=== PATIENT | male | born 1980 | race Caucasian/White ===

== ENCOUNTER 2016-06-23 15:27 | Inpatient (IN) | payer OTHER ==
[2016-06-23 15:48] VITALS: BMI 25.1
--- NOTE | 2016-06-23 16:38 | HP ---
COWS - Scale Resting Pulse: 1= ID [id number] Sweatin=Flushed/Facial Moisture Restless Observation: 3= Extraneous Movement Pupil Size: 0= Normal to Room Light Bone or Joint Aches: 2= Severe Diffuse Aches Runny Nose/ Eye Tearin= Runny Nose/Eyes GI Upset > 30mins: 2= Nausea/Diarrhea Tremor Observation: 2= Slight Tremor Visible Yawning Observation: 1= 1-2x During Session Anxiety or Irritability: 2=Irritable/Anxious Goose Flesh Skin: 0=Smooth Skin COWS Score: 17 Admission ROS S - HPI Chief Complaint: I need detox from heroine Allergies/Adverse Reactions: Allergies Allergy/AdvReac Type Severity Reaction Status Date / Time No Known Allergies Allergy Verified 09/22/15 20:24 History of Present Illness: 35 y/o male with opiate and benzo dependence presents for detox. His last treatment was in 2015 at this facility. - Ebola screening Have you traveled outside of the country in the last 21 days: No Have you had contact with anyone from an Ebola affected area: No Have you been sick,other than usual withdrawal symptoms: No Do you have a fever: No - Review of Systems Constitutional: Chills, Loss of Appetite, Changes in sleep EENT: reports: Nose Congestion Respiratory: reports: No Symptoms reported Cardiac: reports: No Symptoms Reported GI: reports: Nausea, Poor Appetite, Abdominal cramping : reports: No Symptoms Reported Musculoskeletal: reports: Back Pain, Joint Pain, Muscle Weakness Integumentary: reports: No Symptoms Reported Neuro: reports: Headache, Tremors Endocrine: reports: No Symptoms Reported Hematology: reports: No Symptoms Reported Psychiatric: reports: Anxious Other Systems: Reviewed and Negative Patient History - Patient Medical History Hx Anemia: No Hx Asthma: No Hx Chronic Obstructive Pulmonary Disease (COPD): No Hx Cancer: No Hx Cardiac Disorders: No Hx Congestive Heart Failure: No Hx Hypertension: No Hx Hypercholesterolemia: No Hx Pacemaker: No HX Cerebrovascular Accident: No Hx Seizures: No Hx Dementia: No Hx Diabetes: No Hx Gastrointestinal Disorders: Yes (GERD) Hx Liver Disease: No Hx Genitourinary Disorders: No Hx Sexually Transmitted Disorders: No Hx Renal Disease (ESRD): No Hx Thyroid Disease: No Hx Human Immunodeficiency Virus (HIV): No Hx Hepatitis C: No Hx Depression: No Hx Suicide Attempt: No Hx Bipolar Disorder: No Hx Schizophrenia: No - Patient Surgical History Past Surgical History: Yes Hx Neurologic Surgery: No Hx Cataract Extraction: No Hx Cardiac Surgery: No Hx Lung Surgery: No Hx Breast Surgery: No Hx Breast Biopsy: No Hx Abdominal Surgery: No Hx Appendectomy: No Hx Cholecystectomy: No Hx Genitourinary Surgery: No Hx Section: No Hx Orthopedic Surgery: No Other Surgical History: Tonsilectomy as a child Anesthesia Reaction: No - PPD History Previous Implant?: Yes Documented Results: Negative w/proof Implanted On Prior [facility] Admission?: Yes Date: 09/24/15 PPD to be Administered?: No - Smoking Cessation Smoking history: Current every day smoker Have you smoked in the past 12 months: Yes Aproximately how many cigarettes per day: 20 Cigars Per Day: 0 Hx Chewing Tobacco Use: No Initiated information on smoking cessation: Yes 'Breaking Loose' booklet given: 06/23/16 - Substance & Tx. History Hx Alcohol Use: No Hx Substance Use: Yes Substance Use Type: Heroin Hx Substance Use Treatment: Yes - Substances Abused Heroin Route: Injection Frequency: Daily Amount used: 3 bundles Age of first use: 32 Date of Last Use: 06/23/16 Alprazolam (Xanax) Route: Oral Frequency: 1-2 times per week Amount used: 2mg Age of first use: 32 Date of Last Use: 06/23/16 Family Disease History - Family Disease History Family Disease History: Heart Disease: Father, CA: Mother (BREAST), Respiratory : Father Admission Physical Exam BHS - Vital Signs Vital Signs: Vital Signs - 24 hr 06/23/16 15:43 Temperature 96.8 F L Pulse Rate 87 Respiratory 18 Rate Blood Pressure 122/75 - Physical General Appearance: Yes: No Apparent Distress HEENTM: Yes: EOMI, Normal Voice, KYLE Respiratory: Yes: Chest Non-Tender, Normal Breath Sounds, No Respiratory Distress, No Accessory Muscle Use Neck: Yes: No masses,lesions,Nodules, Supple Breast: Yes: Breast Exam Deferred Cardiology: Yes: Regular Rhythm, Regular Rate, S1, S2, Murmur Abdominal: Yes: Normal Bowel Sounds, Soft Genitourinary: Yes: Within Normal Limits Back: Yes: Normal Inspection Musculoskeletal: Yes: Back pain, Muscle Pain Extremities: Yes: Normal Range of Motion, Non-Tender, Tremors 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 intact, Fully Oriented, Alert Integumentary: Yes: Track Stinson (both arms) Lymphatic: Yes: Within Normal Limits - Diagnostic (1) Opioid dependence with withdrawal Current Visit: Yes Status: Acute (2) GERD (gastroesophageal reflux disease) Current Visit: Yes Status: Chronic Qualifiers: Esophagitis presence: without esophagitis Qualified Code(s): K21.9 - Gastro-esophageal reflux disease without esophagitis (3) Nicotine dependence Current Visit: Yes Status: Chronic Qualifiers: Nicotine product type: cigarettes Substance use status: uncomplicated Qualified Code(s): F17.210 - Nicotine dependence, cigarettes, uncomplicated Cleared for Admission [facility] - Detox or Rehab [facility] Level of Care: Medically Managed Detox Regimen/Protocol: Methadone [facility] Breath Alcohol Content Breath Alcohol Content: 0 Urine Drug Screen - Results Drug Screen Negative: No Urine Drug Screen Results: OPI-Opiates, BZO-Benzodiazepines, OXY-Oxycodone
[2016-06-23] MEDS ORDERED: P-EPHED 60MG/TRIPROLIDI 2.5MG TABLET PO PRN (16:43)
[2016-06-23] MEDS ORDERED: LOPERAMIDE HCL 2 MG CAPSULE PO PRN (16:43)
[2016-06-23] MEDS ORDERED: guaiFENesin/D-METHORPHAN HB 10 ML UNIT-DOSE CUPS PO PRN (16:43)
[2016-06-23] MEDS ORDERED: METHADONE HCL 10 MG TABLET (FOR DETOX USE ONLY) PO ONE ×2 (16:43→23:00)
[2016-06-23] MEDS ORDERED: MAG HYDROX/AL HYDROX/SIMETH 30 ML UNIT-DOSE CUP PO PRN (16:43)
[2016-06-23] MEDS ORDERED: MAGNESIUM CITRATE 300 ML BOTTLE PO PRN (16:43)
[2016-06-23] MEDS ORDERED: MENTHOL/PHENOL 1 EACH UD MM PRN (16:43)
[2016-06-23] MEDS ORDERED: ACETAMINOPHEN 325 MG TABLET (FP) PO PRN (16:43)
[2016-06-23] MEDS ORDERED: NICOTINE POLACRILEX 2 MG GUM BC PRN (16:43)
[2016-06-23] MEDS ORDERED: MAGNESIUM HYDROX 2400MG/30ML ORAL SUSPENSION 30 ML CUP PO PRN (16:43)
[2016-06-23] MEDS ORDERED: METHADONE HCL 10 MG TABLET (FOR DETOX USE ONLY) ONE (19:58)
[2016-06-23] MEDS: diazePAM 5 MG TABLET PO PRN (20:00)
[2016-06-23] MEDS: NICOTINE 21 MG/24 HOURS TOPICAL PATCH TD SCH (20:02)
[2016-06-23] MEDS: PANTOPRAZOLE 40 MG TABLET (FP) PO SCH (20:08)
[2016-06-23] MEDS: THIAMINE HCL 100 MG TABLET (FP) PO SCH (22:55)
[2016-06-24] MEDS ORDERED: PANTOPRAZOLE 40 MG TABLET (FP) PO SCH ×2 (08:00→10:00)
[2016-06-24] MEDS ORDERED: METHADONE HCL 10 MG TABLET (FOR DETOX USE ONLY) PO ONE (10:00)
[2016-06-24] MEDS: diazePAM 5 MG TABLET PO PRN ×3 (10:38→22:49)
[2016-06-24] MEDS: PRENATAL VITAMINS W/ FOLIC ACID TABLET (FP) PO SCH (10:38)
[2016-06-24] MEDS: NICOTINE 21 MG/24 HOURS TOPICAL PATCH TD SCH (10:38)
[2016-06-24] MEDS: PANTOPRAZOLE 40 MG TABLET (FP) PO SCH (10:38)
[2016-06-24] MEDS: IBUPROFEN 400 MG TABLET (FP) PO PRN ×2 (10:41→17:37)
[2016-06-24 11:05] LABS: MCHC 34.9 g/dl (32.0-35.9); PLATELET COUNT 147 K/MM3 (134-434); RDW 12.5 % (11.9-15.9); WHITE BLOOD COUNT 5.8 K/mm3 (4.0-10.0)
[2016-06-24 11:13] LABS: ALBUMIN 3.5 g/dl (3.4-5.0); ANION GAP 8 (8-16); CALCIUM 8.4 mg/dL (8.5-10.1); CO2 28 mmol/L (21-32); GLUCOSE,RANDOM 80 mg/dL (74-106)
[2016-06-24 11:17] LABS: ALK PHOS 68 U/L (45-117); BILIRUBIN,TOTAL 0.7 mg/dL (0.2-1.0); COCKROFT - GAULT 146.32; CREATININE 0.9 mg/dL (0.7-1.3); SGOT/AST 14 U/L (15-37); SGPT/ALT 37 U/L (12-78); TOT PROT 6.1 g/dl (6.4-8.2)
[2016-06-24 11:33] LABS: HIV 1 & 2 AB NEGATIVE; HIV 1 AGp24 NEGATIVE
--- NOTE | 2016-06-24 12:43 | EKG ---
Test Reason : Blood Pressure : / mmHG Vent. Rate : 070 BPM Atrial Rate : 070 BPM P-R Int : 168 ms QRS Dur : 104 ms QT Int : 396 ms P-R-T Axes : 064 -13 000 degrees QTc Int : 427 ms NORMAL SINUS RHYTHM MODERATE VOLTAGE CRITERIA FOR LVH, MAY BE NORMAL VARIANT NO PREVIOUS ECGS AVAILABLE Confirmed by BASILIO CAIN MD ([id number]) on 06/24/2016 12:43:47 PM Referred By: Confirmed By:BASILIO CAIN MD
[2016-06-24 12:54] LABS: URINE APPEARANCE CLEAR; URINE BILIRUBIN NEGATIVE (NEGATIVE); URINE BLOOD NEGATIVE (NEGATIVE); URINE COLOR YELLOW; URINE GLUCOSE (UA) NEGATIVE (NEGATIVE); URINE KETONE NEGATIVE (NEGATIVE); URINE LEUK ESTERASE NEGATIVE (NEGATIVE); URINE NITRITE NEGATIVE (NEGATIVE); URINE PROTEIN NEGATIVE (NEGATIVE); URINE UROBILINOGEN NEGATIVE E.U./dl (0.2-1.0)
--- NOTE | 2016-06-24 16:32 | PN ---
BHS COWS - Scale Resting Pulse: 0= [place] 80 or Below Sweatin= Chills/Flushing Restless Observation: 3= Extraneous Movement Pupil Size: 0= Normal to Room Light Bone or Joint Aches: 2= Severe Diffuse Aches Runny Nose/ Eye Tearin= Runny Nose/Eyes GI Upset > 30mins: 2= Nausea/Diarrhea Tremor Observation of Outstretched Hands: 2= Slight Tremor Visible Yawning Observation: 0= None Anxiety or Irritability: 2=Irritable/Anxious Goose Flesh Skin: 0=Smooth Skin COWS Score: 14 BHS Progress Note (SOAP) Subjective: Chills, sweating, anxious, interrupted sleep Objective: 06/24/16 16:31 Last Vital Signs Temp Pulse Resp BP Pulse Ox 96.2 F L 66 18 127/81 06/24/16 14:02 06/24/16 14:02 06/24/16 14:02 06/24/16 14:02 Laboratory Tests 06/24/16 06/24/16 06/24/16 07:00 07:00 07:00 WBC 5.8 RBC 4.80 Hgb 14.4 Hct 41.3 MCV 86.0 MCHC 34.9 RDW 12.5 Plt Count 147 MPV 7.0 L Sodium 141 Potassium 4.2 Chloride 105 Carbon Dioxide 28 Anion Gap 8 BUN 25 H D Creatinine 0.9 Creat Clearance w eGFR > 60 Random Glucose 80 Calcium 8.4 L Total Bilirubin 0.7 AST 14 L D ALT 37 D Alkaline Phosphatase 68 Total Protein 6.1 L Albumin 3.5 Urine Color Urine Appearance Urine pH Ur Specific [place] Urine Protein Urine Glucose (UA) Urine Ketones Urine Blood Urine Nitrite Urine Bilirubin Urine Urobilinogen Ur Leukocyte Esterase RPR Titer Nonreactive HIV 1&2 Antibody Screen HIV P24 Antigen 06/24/16 06/24/16 07:00 09:36 WBC RBC Hgb Hct MCV MCHC RDW Plt Count MPV Sodium Potassium Chloride Carbon Dioxide Anion Gap BUN Creatinine Creat Clearance w eGFR Random Glucose Calcium Total Bilirubin AST ALT Alkaline Phosphatase Total Protein Albumin Urine Color Yellow Urine Appearance Clear Urine pH 6.0 Ur Specific [place] 1.023 Urine Protein Negative Urine Glucose (UA) Negative Urine Ketones Negative Urine Blood Negative Urine Nitrite Negative Urine Bilirubin Negative Urine Urobilinogen Negative Ur Leukocyte Esterase Negative RPR Titer HIV 1&2 Antibody Screen Negative HIV P24 Antigen Negative Labs noted Assessment: 06/24/16 16:31 Withdrawal symptoms Plan: Continue detox
[2016-06-24] MEDS: THIAMINE HCL 100 MG TABLET (FP) PO SCH (22:48)
[2016-06-24] MEDS: diphenhydrAMINE HCL 50 MG CAPSULE PO PRN (22:48)
[2016-06-25] MEDS: diazePAM 5 MG TABLET PO PRN ×3 (05:14→22:34)
[2016-06-25] MEDS ORDERED: METHADONE HCL 5 MG TABLET (FOR DETOX USE ONLY) PO ONE (10:00)
[2016-06-25] MEDS: PRENATAL VITAMINS W/ FOLIC ACID TABLET (FP) PO SCH (10:29)
[2016-06-25] MEDS: NICOTINE 21 MG/24 HOURS TOPICAL PATCH TD SCH (10:29)
[2016-06-25] MEDS: PANTOPRAZOLE 40 MG TABLET (FP) PO SCH (10:30)
--- NOTE | 2016-06-25 15:45 | PN ---
BHS COWS - Scale Resting Pulse: 1= [place] 81-100 Sweatin=Flushed/Facial Moisture Restless Observation: 1= Difficult to Sit Still Pupil Size: 0= Normal to Room Light Bone or Joint Aches: 2= Severe Diffuse Aches Runny Nose/ Eye Tearin= Runny Nose/Eyes GI Upset > 30mins: 2= Nausea/Diarrhea Tremor Observation of Outstretched Hands: 2= Slight Tremor Visible Yawning Observation: 1= 1-2x During Session Anxiety or Irritability: 2=Irritable/Anxious Goose Flesh Skin: 0=Smooth Skin COWS Score: 15 BHS Progress Note (SOAP) Subjective: Sweating,interrupted sleep,anxiety,tremors,muscle aches,restless Objective: 06/25/16 15:44 Last Vital Signs Temp Pulse Resp BP Pulse Ox 96.4 F L 81 18 149/79 06/25/16 14:15 06/25/16 14:15 06/25/16 14:15 06/25/16 14:15 Laboratory Tests 06/24/16 06/24/16 06/24/16 07:00 07:00 07:00 WBC 5.8 RBC 4.80 Hgb 14.4 Hct 41.3 MCV 86.0 MCHC 34.9 RDW 12.5 Plt Count 147 MPV 7.0 L Sodium 141 Potassium 4.2 Chloride 105 Carbon Dioxide 28 Anion Gap 8 BUN 25 H D Creatinine 0.9 Creat Clearance w eGFR > 60 Random Glucose 80 Calcium 8.4 L Total Bilirubin 0.7 AST 14 L D ALT 37 D Alkaline Phosphatase 68 Total Protein 6.1 L Albumin 3.5 Urine Color Urine Appearance Urine pH Ur Specific [place] Urine Protein Urine Glucose (UA) Urine Ketones Urine Blood Urine Nitrite Urine Bilirubin Urine Urobilinogen Ur Leukocyte Esterase RPR Titer Nonreactive HIV 1&2 Antibody Screen HIV P24 Antigen 06/24/16 06/24/16 07:00 09:36 WBC RBC Hgb Hct MCV MCHC RDW Plt Count MPV Sodium Potassium Chloride Carbon Dioxide Anion Gap BUN Creatinine Creat Clearance w eGFR Random Glucose Calcium Total Bilirubin AST ALT Alkaline Phosphatase Total Protein Albumin Urine Color Yellow Urine Appearance Clear Urine pH 6.0 Ur Specific [place] 1.023 Urine Protein Negative Urine Glucose (UA) Negative Urine Ketones Negative Urine Blood Negative Urine Nitrite Negative Urine Bilirubin Negative Urine Urobilinogen Negative Ur Leukocyte Esterase Negative RPR Titer HIV 1&2 Antibody Screen Negative HIV P24 Antigen Negative labs noted Assessment: 06/25/16 15:44 Withdrawal sx. Plan: Continue detox
[2016-06-25] MEDS: THIAMINE HCL 100 MG TABLET (FP) PO SCH (22:33)
[2016-06-25] MEDS: diphenhydrAMINE HCL 50 MG CAPSULE PO PRN (22:35)
[2016-06-26] MEDS: diazePAM 5 MG TABLET PO PRN ×2 (05:23→10:13)
[2016-06-26] MEDS ORDERED: METHADONE HCL 5 MG TABLET (FOR DETOX USE ONLY) PO ONE (10:00)
[2016-06-26] MEDS: NICOTINE 21 MG/24 HOURS TOPICAL PATCH TD SCH (10:13)
[2016-06-26] MEDS: PRENATAL VITAMINS W/ FOLIC ACID TABLET (FP) PO SCH (10:13)
[2016-06-26] MEDS: PANTOPRAZOLE 40 MG TABLET (FP) PO SCH (10:13)
--- NOTE | 2016-06-26 10:51 | PN ---
BHS Progress Note (SOAP) Subjective: DECREASED ANXIETY,SWEATS. Objective: 06/26/16 10:50 Vital Signs Temperature 96.2 F L 06/26/16 09:35 Pulse Rate 79 06/26/16 09:35 Respiratory Rate 20 06/26/16 09:35 Blood Pressure 142/81 06/26/16 09:35 O2 Sat by Pulse Oximetry (%) Laboratory Last Values WBC 5.8 K/mm3 (4.0-10.0) 06/24/16 07:00 RBC 4.80 M/mm3 (4.00-5.60) 06/24/16 07:00 Hgb 14.4 GM/dL (11.7-16.9) 06/24/16 07:00 Hct 41.3 % (35.4-49) 06/24/16 07:00 MCV 86.0 fl (80-96) 06/24/16 07:00 MCHC 34.9 g/dl (32.0-35.9) 06/24/16 07:00 RDW 12.5 % (11.9-15.9) 06/24/16 07:00 Plt Count 147 K/MM3 (134-434) 06/24/16 07:00 MPV 7.0 fl (7.5-11.1) L 06/24/16 07:00 Sodium 141 mmol/L (136-145) 06/24/16 07:00 Potassium 4.2 mmol/L (3.5-5.1) 06/24/16 07:00 Chloride 105 mmol/L (98-107) 06/24/16 07:00 Carbon Dioxide 28 mmol/L (21-32) 06/24/16 07:00 Anion Gap 8 (8-16) 06/24/16 07:00 BUN 25 mg/dL (7-18) H D 06/24/16 07:00 Creatinine 0.9 mg/dL (0.7-1.3) 06/24/16 07:00 Creat Clearance w eGFR > 60 (>60) 06/24/16 07:00 Random Glucose 80 mg/dL (74-106) 06/24/16 07:00 Calcium 8.4 mg/dL (8.5-10.1) L 06/24/16 07:00 Total Bilirubin 0.7 mg/dL (0.2-1.0) 06/24/16 07:00 AST 14 U/L (15-37) L D 06/24/16 07:00 ALT 37 U/L (12-78) D 06/24/16 07:00 Alkaline Phosphatase 68 U/L (45-117) 06/24/16 07:00 Total Protein 6.1 g/dl (6.4-8.2) L 06/24/16 07:00 Albumin 3.5 g/dl (3.4-5.0) 06/24/16 07:00 Urine Color Yellow 06/24/16 09:36 Urine Appearance Clear 06/24/16 09:36 Urine pH 6.0 (5.0-8.0) 06/24/16 09:36 Ur Specific [place] 1.023 (1.001-1.035) 06/24/16 09:36 Urine Protein Negative (NEGATIVE) 06/24/16 09:36 Urine Glucose (UA) Negative (NEGATIVE) 06/24/16 09:36 Urine Ketones Negative (NEGATIVE) 06/24/16 09:36 Urine Blood Negative (NEGATIVE) 06/24/16 09:36 Urine Nitrite Negative (NEGATIVE) 06/24/16 09:36 Urine Bilirubin Negative (NEGATIVE) 06/24/16 09:36 Urine Urobilinogen Negative E.U./dl (0.2-1.0) 06/24/16 09:36 Ur Leukocyte Esterase Negative (NEGATIVE) 06/24/16 09:36 RPR Titer Nonreactive (NONREACTIVE) 06/24/16 07:00 HIV 1&2 Antibody Screen Negative 06/24/16 07:00 HIV P24 Antigen Negative 06/24/16 07:00 Assessment: 06/26/16 10:51 WITHDRAWAL SX Plan: CONTINUE DETOX
[2016-06-26] MEDS: hydrOXYzine PAMOATE 50 MG CAPSULE (FP) PO PRN (17:48)
[2016-06-26] MEDS: IBUPROFEN 400 MG TABLET (FP) PO PRN (17:48)
[2016-06-26] MEDS: diphenhydrAMINE HCL 50 MG CAPSULE PO PRN (22:31)
[2016-06-26] MEDS: THIAMINE HCL 100 MG TABLET (FP) PO SCH (22:31)
[2016-06-27] MEDS ORDERED: METHADONE HCL 10 MG TABLET (FOR DETOX USE ONLY) PO ONE (10:00)
[2016-06-27] MEDS: PRENATAL VITAMINS W/ FOLIC ACID TABLET (FP) PO SCH (10:18)
[2016-06-27] MEDS: NICOTINE 21 MG/24 HOURS TOPICAL PATCH TD SCH (10:18)
[2016-06-27] MEDS: PANTOPRAZOLE 40 MG TABLET (FP) PO SCH (10:18)
[2016-06-27] MEDS: IBUPROFEN 400 MG TABLET (FP) PO PRN ×2 (10:19→22:34)
[2016-06-27] MEDS: hydrOXYzine PAMOATE 50 MG CAPSULE (FP) PO PRN ×2 (10:20→22:34)
--- NOTE | 2016-06-27 11:34 | PN ---
BHS Progress Note (SOAP) Subjective: ANXIETY,FATIGUE. Objective: 06/27/16 11:33 Vital Signs Temperature 98.1 F 06/27/16 10:06 Pulse Rate 76 06/27/16 10:06 Respiratory Rate 20 06/27/16 10:06 Blood Pressure 119/73 06/27/16 10:06 O2 Sat by Pulse Oximetry (%) Laboratory Last Values WBC 5.8 K/mm3 (4.0-10.0) 06/24/16 07:00 RBC 4.80 M/mm3 (4.00-5.60) 06/24/16 07:00 Hgb 14.4 GM/dL (11.7-16.9) 06/24/16 07:00 Hct 41.3 % (35.4-49) 06/24/16 07:00 MCV 86.0 fl (80-96) 06/24/16 07:00 MCHC 34.9 g/dl (32.0-35.9) 06/24/16 07:00 RDW 12.5 % (11.9-15.9) 06/24/16 07:00 Plt Count 147 K/MM3 (134-434) 06/24/16 07:00 MPV 7.0 fl (7.5-11.1) L 06/24/16 07:00 Sodium 141 mmol/L (136-145) 06/24/16 07:00 Potassium 4.2 mmol/L (3.5-5.1) 06/24/16 07:00 Chloride 105 mmol/L (98-107) 06/24/16 07:00 Carbon Dioxide 28 mmol/L (21-32) 06/24/16 07:00 Anion Gap 8 (8-16) 06/24/16 07:00 BUN 25 mg/dL (7-18) H D 06/24/16 07:00 Creatinine 0.9 mg/dL (0.7-1.3) 06/24/16 07:00 Creat Clearance w eGFR > 60 (>60) 06/24/16 07:00 Random Glucose 80 mg/dL (74-106) 06/24/16 07:00 Calcium 8.4 mg/dL (8.5-10.1) L 06/24/16 07:00 Total Bilirubin 0.7 mg/dL (0.2-1.0) 06/24/16 07:00 AST 14 U/L (15-37) L D 06/24/16 07:00 ALT 37 U/L (12-78) D 06/24/16 07:00 Alkaline Phosphatase 68 U/L (45-117) 06/24/16 07:00 Total Protein 6.1 g/dl (6.4-8.2) L 06/24/16 07:00 Albumin 3.5 g/dl (3.4-5.0) 06/24/16 07:00 Urine Color Yellow 06/24/16 09:36 Urine Appearance Clear 06/24/16 09:36 Urine pH 6.0 (5.0-8.0) 06/24/16 09:36 Ur Specific [place] 1.023 (1.001-1.035) 06/24/16 09:36 Urine Protein Negative (NEGATIVE) 06/24/16 09:36 Urine Glucose (UA) Negative (NEGATIVE) 06/24/16 09:36 Urine Ketones Negative (NEGATIVE) 06/24/16 09:36 Urine Blood Negative (NEGATIVE) 06/24/16 09:36 Urine Nitrite Negative (NEGATIVE) 06/24/16 09:36 Urine Bilirubin Negative (NEGATIVE) 06/24/16 09:36 Urine Urobilinogen Negative E.U./dl (0.2-1.0) 06/24/16 09:36 Ur Leukocyte Esterase Negative (NEGATIVE) 06/24/16 09:36 RPR Titer Nonreactive (NONREACTIVE) 06/24/16 07:00 HIV 1&2 Antibody Screen Negative 06/24/16 07:00 HIV P24 Antigen Negative 06/24/16 07:00 Assessment: 06/27/16 11:34 WITHDRAWAL SX SX Plan: CONTINUE DETOX
[2016-06-27] MEDS: THIAMINE HCL 100 MG TABLET (FP) PO SCH (22:32)
[2016-06-28] MEDS ORDERED: METHADONE HCL 5 MG TABLET (FOR DETOX USE ONLY) PO ONE (06:00)
[2016-06-28 06:49] VITALS: BP 116/77; PULSE 78; TEMP 96.8
--- NOTE | 2016-08-05 19:11 | DS ---
[facility] Detox Discharge Summary Admission Date: 06/23/16 Discharge Date: 06/28/16 - History Present History: Opioid Dependence Pertinent Past History: GERD - Physical Exam Results Vital Signs: Vital Signs Temperature 96.8 F L 06/28/16 06:49 Pulse Rate 78 06/28/16 06:49 Respiratory Rate 16 06/28/16 06:49 Blood Pressure 116/77 06/28/16 06:49 O2 Sat by Pulse Oximetry (%) Pertinent Admission Physical Exam Findings: Withdrawal sx. Laboratory Last Values WBC 5.8 K/mm3 (4.0-10.0) 06/24/16 07:00 RBC 4.80 M/mm3 (4.00-5.60) 06/24/16 07:00 Hgb 14.4 GM/dL (11.7-16.9) 06/24/16 07:00 Hct 41.3 % (35.4-49) 06/24/16 07:00 MCV 86.0 fl (80-96) 06/24/16 07:00 MCHC 34.9 g/dl (32.0-35.9) 06/24/16 07:00 RDW 12.5 % (11.9-15.9) 06/24/16 07:00 Plt Count 147 K/MM3 (134-434) 06/24/16 07:00 MPV 7.0 fl (7.5-11.1) L 06/24/16 07:00 Sodium 141 mmol/L (136-145) 06/24/16 07:00 Potassium 4.2 mmol/L (3.5-5.1) 06/24/16 07:00 Chloride 105 mmol/L (98-107) 06/24/16 07:00 Carbon Dioxide 28 mmol/L (21-32) 06/24/16 07:00 Anion Gap 8 (8-16) 06/24/16 07:00 BUN 25 mg/dL (7-18) H D 06/24/16 07:00 Creatinine 0.9 mg/dL (0.7-1.3) 06/24/16 07:00 Creat Clearance w eGFR > 60 (>60) 06/24/16 07:00 Random Glucose 80 mg/dL (74-106) 06/24/16 07:00 Calcium 8.4 mg/dL (8.5-10.1) L 06/24/16 07:00 Total Bilirubin 0.7 mg/dL (0.2-1.0) 06/24/16 07:00 AST 14 U/L (15-37) L D 06/24/16 07:00 ALT 37 U/L (12-78) D 06/24/16 07:00 Alkaline Phosphatase 68 U/L (45-117) 06/24/16 07:00 Total Protein 6.1 g/dl (6.4-8.2) L 06/24/16 07:00 Albumin 3.5 g/dl (3.4-5.0) 06/24/16 07:00 Urine Color Yellow 06/24/16 09:36 Urine Appearance Clear 06/24/16 09:36 Urine pH 6.0 (5.0-8.0) 06/24/16 09:36 Ur Specific [place] 1.023 (1.001-1.035) 06/24/16 09:36 Urine Protein Negative (NEGATIVE) 06/24/16 09:36 Urine Glucose (UA) Negative (NEGATIVE) 06/24/16 09:36 Urine Ketones Negative (NEGATIVE) 06/24/16 09:36 Urine Blood Negative (NEGATIVE) 06/24/16 09:36 Urine Nitrite Negative (NEGATIVE) 06/24/16 09:36 Urine Bilirubin Negative (NEGATIVE) 06/24/16 09:36 Urine Urobilinogen Negative E.U./dl (0.2-1.0) 06/24/16 09:36 Ur Leukocyte Esterase Negative (NEGATIVE) 06/24/16 09:36 RPR Titer Nonreactive (NONREACTIVE) 06/24/16 07:00 HIV 1&2 Antibody Screen Negative 06/24/16 07:00 HIV P24 Antigen Negative 06/24/16 07:00 labs noted - Treatment Hospital Course: Detox Protocol Followed, Detoxed Safely, Responded well, Discharged Condition Good, Rehab Referral Accepted Patient has Accepted a Rehab Referral to: 12 step meeting - Medication Discharge Medications: Ambulatory Orders Omeprazole [Prilosec] 1 cap PO DAILY 09/22/15 - Diagnosis (1) Opioid dependence with withdrawal Status: Acute (2) GERD (gastroesophageal reflux disease) Status: Chronic Qualifiers: Esophagitis presence: without esophagitis Qualified Code(s): K21.9 - Gastro-esophageal reflux disease without esophagitis (3) Nicotine dependence Status: Chronic Qualifiers: Nicotine product type: cigarettes Substance use status: uncomplicated Qualified Code(s): F17.210 - Nicotine dependence, cigarettes, uncomplicated - AMA Did Patient Leave Against Medical Advice: No
== END 2016-06-28 08:39 | disposition home or self-care (01) | DRG 773 ==
LOC: YASAS 15:27 → Y3N 17:23
PROVIDERS: ADMIT Internal Medicine; ATTEND Internal Medicine
PROC: HZ2ZZZZ Detoxification Services for Substance Abuse Treatment (ICD-10-PCS; principal; 2016-06-23)
DX: F11.23 Opioid dependence with withdrawal (principal); F17.210 Nicotine dependence, cigarettes, uncomplicated; K21.9 Gastro-esophageal reflux disease without esophagitis; R01.1 Cardiac murmur, unspecified
CPT/HCPCS: 36415; 80053; 81003; 85027; 86593; 87389; 93005; 93010

== ENCOUNTER 2016-10-10 10:04 | Inpatient (IN) | payer MEDICARE ==
[2016-10-10 10:55] VITALS: BMI 24.6
--- NOTE | 2016-10-10 13:06 | HP ---
COWS - Scale Resting Pulse: 1= [place] 81-100 Sweatin= Chills/Flushing Restless Observation: 3= Extraneous Movement Pupil Size: 0= Normal to Room Light Bone or Joint Aches: 4=Acute Joint/Muscle Pain Runny Nose/ Eye Tearin= Nasal Congestion GI Upset > 30mins: 2= Nausea/Diarrhea Tremor Observation: 1= Tremor [place], Not Seen Yawning Observation: 1= 1-2x During Session Anxiety or Irritability: 2=Irritable/Anxious Goose Flesh Skin: 0=Smooth Skin COWS Score: 16 Admission [facility] Chief Complaint: DETOX [place] FOR HEROIN DEPENDENCE Allergies/Adverse Reactions: Allergies Allergy/AdvReac Type Severity Reaction Status Date / Time No Known Allergies Allergy Verified 10/10/16 11:50 History of Present Illness: 36 Y/O MALE WITH A HX OF HEROIN DEPENDENCE SEEKING DETOX [place] Exam Limitations: No Limitations - Ebola screening Have you traveled outside of the country in the last 21 days: No Have you had contact with anyone from an Ebola affected area: No Have you been sick,other than usual withdrawal symptoms: No Do you have a fever: No - Review of Systems Constitutional: Chills, Loss of Appetite, Night Sweats, Changes in sleep, Unintentional Wgt. Loss EENT: reports: Blurred Vision, Tearing, Nose Congestion, Dental Problems ( MISSING TEETH/CAVITIES) Respiratory: reports: No Symptoms reported Cardiac: reports: Lightheadedness GI: reports: Constipated, Diarrhea, Nausea, Poor Fluid Intake, Vomiting : reports: No Symptoms Reported Musculoskeletal: reports: Back Pain, Joint Pain, Muscle Pain Integumentary: reports: Bruising (SCAB FROM SKIN POPPING LEFT UPPER ARM-- ABSCESS REMOVED 1 WEEK AGO.) Neuro: reports: Headache, Numbness, Tingling, Tremors, Dizziness Endocrine: reports: No Symptoms Reported Hematology: reports: No Symptoms Reported Psychiatric: reports: Orientated x3, Agitated, Anxious Other Systems: Reviewed and Negative Patient History - Patient Medical History Hx Anemia: No Hx Asthma: No Hx Chronic Obstructive Pulmonary Disease (COPD): No Hx Cancer: No Hx Cardiac Disorders: No Hx Congestive Heart Failure: No Hx Hypertension: No Hx Hypercholesterolemia: No Hx Pacemaker: No HX Cerebrovascular Accident: No Hx Seizures: No Hx Dementia: No Hx Diabetes: No Hx Gastrointestinal Disorders: Yes (GERD-OMEPRAZOLE 40 MG ) Hx Liver Disease: No Hx Genitourinary Disorders: No Hx Sexually Transmitted Disorders: No Hx Renal Disease (ESRD): No Hx Thyroid Disease: No Hx Human Immunodeficiency Virus (HIV): No (NEGATIVE HX) Hx Hepatitis C: No Hx Depression: No Hx Suicide Attempt: No (DENIES) Hx Bipolar Disorder: No Hx Schizophrenia: No - Patient Surgical History Past Surgical History: Yes Hx Neurologic Surgery: No Hx Cataract Extraction: No Hx Cardiac Surgery: No Hx Lung Surgery: No Hx Breast Surgery: No Hx Breast Biopsy: No Hx Abdominal Surgery: No Hx Appendectomy: No Hx Cholecystectomy: No Hx Genitourinary Surgery: No Hx Section: No Hx Orthopedic Surgery: Yes (Abcess lt upper arm(drained 1 week ago) Other Surgical History: Tonsilectomy as a child Anesthesia Reaction: No - PPD History Previous Implant?: Yes Documented Results: Negative w/proof Implanted On Prior [facility] Admission?: Yes Date: 09/24/15 PPD to be Administered?: Yes - Reproductive History Patient is a Female of Child Bearing Age (11 -55 yrs old): No (MALE) Patient : (N/A) - Smoking Cessation Smoking history: Current every day smoker Have you smoked in the past 12 months: Yes Aproximately how many cigarettes per day: 20 Cigars Per Day: 0 Hx Chewing Tobacco Use: No Initiated information on smoking cessation: Yes 'Breaking Loose' booklet given: 10/10/16 - Substance & Tx. History Hx Alcohol Use: No (DENIES) Hx Substance Use: Yes (HEROIN) Substance Use Type: Heroin Hx Substance Use Treatment: Yes (LAST [place] AT [facility]OX) - Substances Abused Heroin Route: Injection Frequency: Daily Amount used: 30 BAGS Age of first use: 30 Date of Last Use: 10/10/16 Family Disease History - Family Disease History Family Disease History: Heart Disease: Father, CA: Mother (BREAST), Respiratory : Father Admission Physical Exam S - Vital Signs Vital Signs: Vital Signs - 24 hr 10/10/16 10:52 Temperature 98.7 F Pulse Rate 94 H Respiratory 20 Rate Blood Pressure 147/76 - Physical General Appearance: Yes: Moderate Distress, Irritable, Anxious HEENTM: Yes: EOMI, Normocephalic, KYLE, Pharynx Normal Respiratory: Yes: Chest Non-Tender, Lungs Clear, Normal Breath Sounds, No Respiratory Distress Neck: Yes: No masses,lesions,Nodules, Supple, Trachea in good position Breast: Yes: Breast Exam Deferred Cardiology: Yes: Regular Rhythm, Regular Rate, S1, S2 Abdominal: Yes: Normal Bowel Sounds, Non Tender, Flat, Soft Genitourinary: Yes: Other (N/A) Back: Yes: Within Normal Limits Musculoskeletal: Yes: full range of Motion, Gait Steady Extremities: Yes: Normal Range of Motion, Non-Tender Neurological: Yes: data management II-XII NML intact, Fully Oriented, Alert, Motor Strength 5/5 Integumentary: Yes: Dry, Warm, Track Stinson (LEFT DELTOID SKIN POP RC) Lymphatic: Yes: Within Normal Limits - Diagnostic (1) Opioid dependence with withdrawal Current Visit: Yes Status: Acute (2) GERD (gastroesophageal reflux disease) Current Visit: Yes Status: Chronic Qualifiers: Esophagitis presence: without esophagitis Qualified Code(s): K21.9 - Gastro-esophageal reflux disease without esophagitis (3) Nicotine dependence Current Visit: Yes Status: Acute Qualifiers: Nicotine product type: cigarettes Substance use status: in withdrawal Qualified Code(s): F17.213 - Nicotine dependence, cigarettes, with withdrawal Cleared for Admission [facility] - Detox or Rehab [facility] Level of Care: Medically Managed Detox Regimen/Protocol: Methadone S Breath Alcohol Content Breath Alcohol Content: 0 Urine Drug Screen - Results Drug Screen Negative: No Urine Drug Screen Results: OPI-Opiates
[2016-10-10] MEDS ORDERED: LOPERAMIDE HCL 2 MG CAPSULE PO PRN (13:10)
[2016-10-10] MEDS ORDERED: P-EPHED 60MG/TRIPROLIDI 2.5MG TABLET PO PRN (13:10)
[2016-10-10] MEDS ORDERED: MENTHOL/PHENOL 1 EACH UD MM PRN (13:10)
[2016-10-10] MEDS ORDERED: MAGNESIUM HYDROX 2400MG/30ML ORAL SUSPENSION 30 ML CUP PO PRN (13:10)
[2016-10-10] MEDS ORDERED: NICOTINE POLACRILEX 4 MG GUM BUC PRN (13:10)
[2016-10-10] MEDS ORDERED: MAGNESIUM CITRATE 300 ML BOTTLE PO PRN (13:10)
[2016-10-10] MEDS ORDERED: IBUPROFEN 400 MG TABLET (FP) PO PRN (13:10)
[2016-10-10] MEDS ORDERED: diphenhydrAMINE HCL 50 MG CAPSULE PO PRN (13:10)
[2016-10-10] MEDS ORDERED: MAG HYDROX/AL HYDROX/SIMETH 30 ML UNIT-DOSE CUP PO PRN (13:10)
[2016-10-10] MEDS ORDERED: hydrOXYzine PAMOATE 50 MG CAPSULE (FP) PO PRN (13:10)
[2016-10-10] MEDS ORDERED: guaiFENesin/D-METHORPHAN HB 10 ML UNIT-DOSE CUPS PO PRN (13:10)
[2016-10-10] MEDS ORDERED: ACETAMINOPHEN 325 MG TABLET (FP) PO PRN (13:10)
[2016-10-10] MEDS ORDERED: ONDANSETRON *ODT* 4 MG TABLET SL PRN (13:12)
[2016-10-10] MEDS ORDERED: METHADONE HCL 10 MG TABLET (FOR DETOX USE ONLY) PO ONE ×2 (13:59→23:00)
[2016-10-10] MEDS: diazePAM 5 MG TABLET PO PRN ×2 (14:57→22:12)
[2016-10-10] MEDS: NICOTINE 21 MG/24 HOURS TOPICAL PATCH TD SCH (15:09)
[2016-10-10] MEDS ORDERED: PANTOPRAZOLE 40 MG TABLET (FP) PO ONE (15:32)
[2016-10-10 16:58] LABS: MCH 29.9 pg (25.7-33.7); MCHC 34.6 g/dl (32.0-35.9); MEAN CELL VOLUME 86.4 fl (80-96); MEAN PLT VOLUME 6.9 fl (7.5-11.1); PLATELET COUNT 208 K/MM3 (134-434); RDW 13.5 % (11.9-15.9); WHITE BLOOD COUNT 7.9 K/mm3 (4.0-10.0)
[2016-10-10 17:04] LABS: URINE APPEARANCE SLCLOUDY; URINE BILIRUBIN NEGATIVE (NEGATIVE); URINE BLOOD NEGATIVE (NEGATIVE); URINE COLOR AMBER; URINE GLUCOSE (UA) NEGATIVE (NEGATIVE); URINE KETONE NEGATIVE (NEGATIVE); URINE LEUK ESTERASE NEGATIVE (NEGATIVE); URINE NITRITE NEGATIVE (NEGATIVE); URINE PROTEIN NEGATIVE (NEGATIVE); URINE UROBILINOGEN NEGATIVE mg/dL (0.2-1.0)
[2016-10-10 17:11] LABS: ALBUMIN 3.9 g/dl (3.4-5.0); ANION GAP 4 (8-16); BILIRUBIN,TOTAL 0.7 mg/dL (0.2-1.0); CALCIUM 9.6 mg/dL (8.5-10.1); CO2 32 mmol/L (21-32); CREATININE 0.8 mg/dL (0.7-1.3); GLUCOSE,RANDOM 82 mg/dL (74-106); SGOT/AST 21 U/L (15-37); TOT PROT 7.2 g/dl (6.4-8.2)
[2016-10-10 17:16] LABS: ALK PHOS 89 U/L (45-117); SGPT/ALT 48 U/L (12-78)
[2016-10-10] MEDS ORDERED: THIAMINE HCL 100 MG TABLET (FP) PO SCH (22:00)
[2016-10-11] MEDS: diazePAM 5 MG TABLET PO PRN ×2 (06:07→10:51)
[2016-10-11] MEDS ORDERED: TRIMETHOBENZAMIDE HCL 200MG/2ML INJ IM PRN (08:50)
[2016-10-11] MEDS ORDERED: CYCLOBENZAPRINE HCL 10 MG TABLET (FP) PO ONE (08:58)
[2016-10-11] MEDS ORDERED: PANTOPRAZOLE 40 MG TABLET (FP) PO SCH (10:00)
[2016-10-11] MEDS ORDERED: METHADONE HCL 10 MG TABLET (FOR DETOX USE ONLY) PO ONE (10:00)
[2016-10-11] MEDS ORDERED: cloNIDine HCL 0.1 MG TABLET PO SCH (10:00)
[2016-10-11] MEDS ORDERED: PRENATAL VITAMINS W/ FOLIC ACID TABLET (FP) PO SCH (10:00)
[2016-10-11 10:20] VITALS: BP 130/71; PULSE 76; TEMP 95
[2016-10-11] MEDS: NICOTINE 21 MG/24 HOURS TOPICAL PATCH TD SCH (10:51)
--- NOTE | 2016-10-11 12:39 | PN ---
[facility] COWS - Scale Resting Pulse: 0= TX 80 or Below Sweatin= Chills/Flushing Restless Observation: 3= Extraneous Movement Pupil Size: 1= Pupils >than Normal Bone or Joint Aches: 2= Severe Diffuse Aches Runny Nose/ Eye Tearin= Runny Nose/Eyes GI Upset > 30mins: 2= Nausea/Diarrhea Tremor Observation of Outstretched Hands: 2= Slight Tremor Visible Yawning Observation: 1= 1-2x During Session Anxiety or Irritability: 2=Irritable/Anxious Goose Flesh Skin: 0=Smooth Skin COWS Score: 16 S Progress Note (SOAP) Subjective: alert,irritable,anxious,interrupted sleep,tremor,pain in the body and back Objective: 10/11/16 12:37 Vital Signs Temperature 95 F L 10/11/16 10:19 Pulse Rate 76 10/11/16 10:19 Respiratory Rate 18 10/11/16 10:19 Blood Pressure 130/71 10/11/16 10:19 O2 Sat by Pulse Oximetry (%) 10/11/16 12:38 ekg nsr,lvh no chest pain,no sob,no dizziness Assessment: 10/11/16 12:38 withdrawal symptom Plan: continue detox
--- NOTE | 2016-10-11 12:42 | DS ---
[facility] Detox Discharge Summary Admission Date: 10/10/16 Discharge Date: 10/11/16 - History Present History: Opioid Dependence Additional Comments: patient did not want to complete treatment,seen by counselor,signed release ama Pertinent Past History: gerd nicotine dependence - Physical Exam Results Vital Signs: Vital Signs Temperature 95 F L 10/11/16 10:19 Pulse Rate 76 10/11/16 10:19 Respiratory Rate 18 10/11/16 10:19 Blood Pressure 130/71 10/11/16 10:19 O2 Sat by Pulse Oximetry (%) Pertinent Admission Physical Exam Findings: withdrawal symptom - Medication Discharge Medications: Ambulatory Orders Omeprazole [Prilosec] 1 cap PO DAILY 09/22/15 - Diagnosis (1) Nicotine dependence Current Visit: Yes Status: Acute Qualifiers: Nicotine product type: cigarettes Substance use status: in withdrawal Qualified Code(s): F17.213 - Nicotine dependence, cigarettes, with withdrawal (2) Opioid dependence with withdrawal Current Visit: Yes Status: Acute (3) GERD (gastroesophageal reflux disease) Current Visit: Yes Status: Chronic Qualifiers: Esophagitis presence: without esophagitis Qualified Code(s): K21.9 - Gastro-esophageal reflux disease without esophagitis - AMA Did Patient Leave Against Medical Advice: Yes
[2016-10-11] MEDS ORDERED: CYCLOBENZAPRINE HCL 10 MG TABLET (FP) PO SCH (14:00)
--- NOTE | 2016-10-11 15:39 | EKG ---
Test Reason : Blood Pressure : / mmHG Vent. Rate : 076 BPM Atrial Rate : 076 BPM P-R Int : 156 ms QRS Dur : 102 ms QT Int : 390 ms P-R-T Axes : 063 -07 000 degrees QTc Int : 438 ms NORMAL SINUS RHYTHM MODERATE VOLTAGE CRITERIA FOR LVH, MAY BE NORMAL VARIANT BORDERLINE ECG WHEN COMPARED WITH ECG OF 23-JUN-2016 18:12, NO SIGNIFICANT CHANGE WAS FOUND Confirmed by MEGA WANG, TARAS ([id number]) on 10/11/2016 3:39:02 PM Referred By: Confirmed By:TARAS AOYUB MD
[2016-10-12] MEDS ORDERED: METHADONE HCL 5 MG TABLET (FOR DETOX USE ONLY) PO ONE (10:00)
[2016-10-13] MEDS ORDERED: METHADONE HCL 5 MG TABLET (FOR DETOX USE ONLY) PO ONE (10:00)
[2016-10-14] MEDS ORDERED: METHADONE HCL 10 MG TABLET (FOR DETOX USE ONLY) PO ONE (10:00)
[2016-10-15] MEDS ORDERED: METHADONE HCL 5 MG TABLET (FOR DETOX USE ONLY) PO ONE (06:00)
== END 2016-10-11 10:55 | disposition left against medical advice (07) | DRG 770 ==
LOC: YASAS 10:04 → Y6N 13:56
PROVIDERS: ADMIT Internal Medicine; ATTEND Internal Medicine
PROC: HZ2ZZZZ Detoxification Services for Substance Abuse Treatment (ICD-10-PCS; principal; 2016-10-10)
DX: F11.23 Opioid dependence with withdrawal (principal); F17.210 Nicotine dependence, cigarettes, uncomplicated; K21.9 Gastro-esophageal reflux disease without esophagitis
CPT/HCPCS: 36415; 80053; 81003; 85027; 86593; 93005; 93010